=== PATIENT | female | born 1960 | race American Indian/Alaskan Native ===

== ENCOUNTER 2019-05-11 19:00 | Emergency (ER) | payer SELFPAY ==
[2019-05-11] MEDS ORDERED: ZOFRAN ODT PO ONE (22:32)
[2019-05-11] MEDS ORDERED: ZOFRAN ODT ONE (22:32)
[2019-05-11] MEDS ORDERED: PERCOCET 5/325 PO ONE (22:32)
[2019-05-11] MEDS ORDERED: PERCOCET 5/325 ONE (22:32)
== END 2019-05-11 22:45 | disposition home or self-care (01) ==
LOC: ED 19:00
DX: M25.50 Pain in unspecified joint (principal); Z53.21 Procedure and treatment not carried out due to patient leaving prior to being seen by health care provider
CPT/HCPCS: Q0162

== ENCOUNTER 2019-07-15 09:44 | Emergency (ER) | payer MEDICARE ==
[2019-07-15 09:55] VITALS: BP 115/56
[2019-07-15] MEDS ORDERED: NORCO 5/325 PO STA (11:01)
--- NOTE | 2019-07-15 12:01 | XRay Report ---
LUMBOSACRAL SPINE, 3 VIEWS INDICATION: Severe back pain for one day. No injury. COMPARISON: None. IMPRESSION: Normal alignment. Mild degenerative disc narrowing and moderate to severe hypertrophic facet arthropathy are identified at L4-5 and L5-S1. The remaining levels are within normal limits. N o acute osseous or soft tissue abnormality. Signer Name: Chas Mayo Jr, MD Signed: 07/15/2019 11:56 AM Workstation Name: [id number]
--- NOTE | 2019-07-15 13:05 | Emergency Department Report ---
ED Back Pain/Injury HPI - General Chief Complaint: Back Pain/Injury Stated Complaint: LOWER BACK PAIN Time Seen by Provider: 07/15/19 11:01 Source: patient Limitations: No Limitations - History of Present Illness MD Complaint: back pain, back injury -: Gradual Similar Symptoms Previously: Yes Place: home Radiation: none Severity: moderate Quality: sharp, aching Consistency: intermittent Improves With: none Worsens With: movement Context: unknown Associated Symptoms: denies: chest pain, numbness, cough, incontinence, constipation, loss of appetite, rash, seizure, shortness of breath - Related Data Previous Rx's Medication Instructions Recorded Last Taken Type methOCARBAMOL [Robaxin] 750 mg PO Q8H PRN #21 tablet 07/15/19 Unknown Rx predniSONE [Deltasone] 50 mg PO QDAY #5 tab 07/15/19 Unknown Rx traMADol [Ultram] 50 mg PO Q6HR PRN #14 tablet 07/15/19 Unknown Rx Allergies Allergy/AdvReac Type Severity Reaction Status Date / Time No Known Allergies Allergy Verified 05/11/19 19:08 ED Review of Systems ROS: Stated complaint: LOWER BACK PAIN Other details as noted in HPI Comment: All other systems reviewed and negative ED Past Medical Hx - Past Medical History Previous Medical History?: Yes Additional medical history: collapsed lung - Surgical History Past Surgical History?: Yes Additional Surgical History: lung surgery - Social History Smoking Status: Never Smoker Substance Use Type: Alcohol, Marijuana - Medications Home Medications: Home Medications Medication Instructions Recorded Confirmed Last Taken Type methOCARBAMOL [Robaxin] 750 mg PO Q8H PRN #21 tablet 07/15/19 Unknown Rx predniSONE [Deltasone] 50 mg PO QDAY #5 tab 07/15/19 Unknown Rx traMADol [Ultram] 50 mg PO Q6HR PRN #14 tablet 07/15/19 Unknown Rx ED Physical Exam - General Limitations: No Limitations General appearance: alert, in no apparent distress - Head Head exam: Present: atraumatic, normocephalic - Eye Eye exam: Present: normal appearance, PERRL, EOMI Pupils: Present: normal accommodation - ENT ENT exam: Present: normal exam, mucous membranes moist, TM's normal bilaterally - Neck Neck exam: Present: normal inspection - Respiratory Respiratory exam: Present: normal lung sounds bilaterally. Absent: respiratory distress - Cardiovascular Cardiovascular Exam: Present: regular rate, normal rhythm. Absent: systolic murmur, diastolic murmur, rubs, gallop - GI/Abdominal GI/Abdominal exam: Present: soft, normal bowel sounds - Extremities Exam Extremities exam: Present: normal inspection - Back Exam Back exam: Present: normal inspection, tenderness (there is no tenderness to the left sacroiliac joint with palpation. Some paraspinous tenderness with palpation and some muscle spasm noted. Full range of motion. Straight leg raising is negative. Spurling's test is negative. There is discomfort with lateral flexion) - Neurological Exam Neurological exam: Present: alert, oriented X3, CN II-XII intact - Psychiatric Psychiatric exam: Present: normal affect, normal mood - Skin Skin exam: Present: warm, dry, intact, normal color. Absent: rash ED Course Vital Signs 07/15/19 07/15/19 09:53 11:17 Temperature 98.4 F Pulse Rate 69 Respiratory 18 18 Rate Blood Pressure 115/56 O2 Sat by Pulse 97 Oximetry ED Medical Decision Making - Radiology Data Radiology results: report reviewed (arthritis and facet joint arthropathy on lumbar films) - Medical Decision Making 59-year-old [place] female complains of back pain off and on for the last couple days and reemerge on today. Pain is associated with cramping, aching across her lumbar area. X-ray showed facet joint arthropathy and some spinal canal stenosis and disposition narrowing. There is full range of motion on examination. No urgent/emergent neurological condition is present. Discussed with patient the need to follow with or so for further evaluation and likely an MRI. And she's been also advised on the appropriate treatment involving med ication. She is neurologically intact with no signs of any cord syndrome, cord compression syndrome. Critical care attestation.: If time is entered above; I have spent that time in minutes in the direct care of this critically ill patient, excluding procedure time. ED Disposition Clinical Impression: Back pain Disposition: DC-01 TO HOME OR SELFCARE Is pt being admited?: No Does the pt Need Aspirin: No Condition: Stable Instructions: Lumbar Radiculopathy (ED), Chronic Back Pain (ED), Back Pain (ED) Prescriptions: predniSONE [Deltasone] 50 mg PO QDAY #5 tab methOCARBAMOL [Robaxin] 750 mg PO Q8H PRN #21 tablet PRN Reason: Spasms traMADol [Ultram] 50 mg PO Q6HR PRN #14 tablet PRN Reason: Pain Referrals: [facility] MD EUFEMIA [Primary Care Provider] - 3-5 Days GIDEON ROMERO MD [Staff Physician] - 3-5 Days
== END 2019-07-15 13:11 | disposition home or self-care (01) ==
LOC: ED 09:44
DX: M54.9 Dorsalgia, unspecified (principal); F12.10 Cannabis abuse, uncomplicated; Z79.899 Other long term (current) drug therapy
CPT/HCPCS: 72100; 99283

== ENCOUNTER 2020-01-22 22:20 | Emergency (ER) | payer MEDICARE ==
[2020-01-22] MEDS ORDERED: IBUPROFEN 600 MG TAB PO ONE ×2 (23:50→23:52)
--- NOTE | 2020-01-23 00:37 | XRay Report ---
CERVICAL SPINE 3 VIEWS INDICATION: neck pain. COMPARISON: No relevant prior imaging study available. FINDINGS: There is limited evaluation of the odontoid on open-mouth view. The cervicothoracic junction is not w ell-visualized on the lateral view. Accounting for these limitations, no acute, displaced fracture or subluxation is seen. There is no prevertebral soft tissue swelling. There is mild to moderate diffuse mid to lower cervical discogenic degenerative change. IMPRESSION: 1. No acute findings. LUMBAR SPINE 3 VIEWS INDICATION: Low back pain. COMPARISON: 07/15/2019. FINDINGS: No acute fracture or subluxation is seen. Alignment is normal. Advanced diffuse facet arthropathy is noted. There is diffuse narrowing of the distance between the s pinous processes as well. There is mild diffuse discogenic degenerative change. IMPRESSION: 1. No acute findings. Signer Name: Jesu Kingston MD Signed: 01/23/2020 12:33 AM Workstation Name: [id number]
--- NOTE | 2020-01-23 02:35 | Emergency Department Report ---
ED Fall HPI - General Chief Complaint: Back Pain/Injury Stated Complaint: FALL AT WORK/BACK/NECK PAIN Time Seen by Provider: 01/23/20 01:54 Source: patient Mode of arrival: Ambulatory Limitations: No Limitations - History of Present Illness Initial Comments: This is a 59-year-old -[place] female who presents to the emergency room with neck and low back pain from a slip and fall. Patient states she was taking trash out at her apartments on yesterday when she slipped and fell on some water near the trash [place]. Patient states she landed face forward with her hands stretched out. She is now complaining of posterior neck and low back pain which is worse with movement. She denies bruising, swelling, numbness or tingling, weakness, change in urinary or bowel pattern. MD Complaint: fall Onset/Timin -: days(s) Fall From: standing Fall Witnessed: no Place Fall Occurred: street Loss of Consciousness: none Prolonged Down Time?: no Symptoms Prior to Fall: none Location: neck, back Severity: moderate Severity scale (0 -10): 7 Quality: aching Context: tripped/slipped Associated Symptoms: neck pain - Related Data Previous Rx's Medication Instructions Recorded Last Taken Type methOCARBAMOL [Robaxin] 750 mg PO Q8H PRN #21 tablet 07/15/19 Unknown Rx predniSONE [Deltasone] 50 mg PO QDAY #5 tab 07/15/19 Unknown Rx traMADoL [Ultram] 50 mg PO Q6HR PRN #14 tablet 07/15/19 Unknown Rx Methocarbamol [Robaxin] 500 mg PO BID PRN #15 tablet 01/23/20 Unknown Rx Allergies Allergy/AdvReac Type Severity Reaction Status Date / Time No Known Allergies Allergy Verified 05/11/19 19:08 ED Review of Systems ROS: Stated complaint: FALL AT WORK/BACK/NECK PAIN Other details as noted in HPI Constitutional: denies: chills, fever Respiratory: denies: cough, shortness of breath, wheezing Cardiovascular: denies: chest pain, palpitations Gastrointestinal: denies: abdominal pain, nausea, diarrhea Musculoskeletal: back pain, arthralgia (Neck pain). denies: joint swelling Skin: denies: rash, lesions Neurological: denies: headache, weakness, paresthesias Psychiatric: denies: anxiety, depression ED Past Medical Hx - Past Medical History Previous Medical History?: Yes Hx Asthma: Yes Additional medical history: collapsed lung - Surgical History Past Surgical History?: Yes Additional Surgical History: lung surgery - Social History Smoking Status: Never Smoker Substance Use Type: None - Medications Home Medications: Home Medications Medication Instructions Recorded Confirmed Last Taken Type methOCARBAMOL [Robaxin] 750 mg PO Q8H PRN #21 tablet 07/15/19 Unknown Rx predniSONE [Deltasone] 50 mg PO QDAY #5 tab 07/15/19 Unknown Rx traMADoL [Ultram] 50 mg PO Q6HR PRN #14 tablet 07/15/19 Unknown Rx Methocarbamol [Robaxin] 500 mg PO BID PRN #15 tablet 01/23/20 Unknown Rx ED Physical Exam - General Limitations: No Limitations General appearance: alert, in no apparent distress, obese - ENT ENT exam: Present: mucous membranes moist - Neck Neck exam: Present: tenderness (C4 and C5 tenderness to palpation, no swelling, no erythema, no step-off), full ROM (Pain with full range of motion). Absent: lymphadenopathy, thyromegaly - Respiratory Respiratory exam: Present: normal lung sounds bilaterally. Absent: respiratory distress - Cardiovascular Cardiovascular Exam: Present: regular rate, normal rhythm. Absent: systolic murmur, diastolic murmur, rubs, gallop - GI/Abdominal GI/Abdominal exam: Present: soft, normal bowel sounds. Absent: distended, tenderness, guarding, rebound, rigid, organomegaly - Extremities Exam Extremities exam: Present: normal inspection - Back Exam Back exam: Present: full ROM, paraspinal tenderness (Bilateral L-spine paraspinal tenderness, no midline tenderness, no deformity or step-off), other (Negative straight leg test). Absent: muscle spasm, vertebral tenderness, rash noted - Neurological Exam Neurological exam: Present: alert, oriented X3, normal gait - Expanded Neurological Exam Expanded Speech: Present: fluid speech Cerebellar function: Finger to Nose: Normal, Romberg: Normal Sensory exam: Lower Extremity Light Touch: Normal, Lower Extremity Pin Prick: Normal, Lower Extremity Temperature: Normal, LE 2 Point Discrimination: Normal Motor strength exam: RLE: 5, LLE: 5 Best Eye Response (Anthony): (4) open spontaneously Best Motor Response (Anthony): (6) obeys commands Best Verbal Response (Efra): (5) oriented Anthony Total: 15 - Psychiatric Psychiatric exam: Present: normal affect, normal mood - Skin Skin exam: Present: warm, dry, intact, normal color. Absent: rash ED Course Vital Signs 01/22/20 22:24 Temperature 98.2 F Pulse Rate 88 Respiratory 18 Rate Blood Pressure 97/62 O2 Sat by Pulse 97 Oximetry ED Medical Decision Making - Radiology Data Radiology results: report reviewed CERVICAL SPINE 3 VIEWS INDICATION: neck pain. COMPARISON: No relevant prior imaging study available. FINDINGS: There is limited evaluation of the odontoid on open-mouth view. The cervicothoracic junction is not well-visualized on the lateral view. Accounting for these limitations, no acute, displaced fracture or subluxation is seen. There is no prevertebral soft tissue swelling. There is mild to moderate diffuse mid to lower cervical discogenic degenerative change. IMPRESSION: 1. No acute findings. LUMBAR SPINE 3 VIEWS INDICATION: Low back pain. COMPARISON: 07/15/2019. FINDINGS: No acute fracture or subluxation is seen. Alignment is normal. Advanced diffuse facet arthropathy is noted. There is diffuse narrowing of the distance between the spinous processes as well. There is mild diffuse discogenic degenerative change. IMPRESSION: 1. No acute findings. - Medical Decision Making 59-year-old female complaining of posterior neck and low back pain from a slip and fall yesterday. Patient is nontoxic appearing and stable. Vitals are stable. Obtained x-rays of cervical and lumbar spine with no acute findings. Analgesics given while in ER. Given history, exam, and work-up, there is low suspicion for spine fracture or other acute spinal syndrome. Patient given instructions for rice therapy. Continue taking [id number] NSAIDs. Start muscle relaxers. She was given strict return precautions for delayed possible symptoms. Patient discharged with prompt follow-up with primary care physician. Critical care attestation.: If time is entered above; I have spent that time in minutes in the direct care of this critically ill patient, excluding procedure time. ED Disposition Clinical Impression: Neck pain, Muscle strain Back pain Qualifiers: Back pain location: low back pain Chronicity: acute Back pain laterality: bilateral Sciatica presence: without sciatica Qualified Code(s): M54.5 - Low back pain Fall Qualifiers: Encounter type: initial encounter Qualified Code(s): W19.XXXA - Unspecified fall, initial encounter Disposition: TO HOME OR SELFCARE Is pt being admited?: No Condition: Stable Instructions: Muscle Strain (ED), Arthralgia (ED), Fall Prevention (ED) Additional Instructions: Rest Use ice or heat on affected area for 20 minutes and off for 2 hours. Take [id number] ibuprofen, naproxen, or Aleve pain medication every 6-8 hours as needed for pain. Don't drive or operate heavy machinery while taking muscle relaxers because they may cause drowsiness. Follow up with Primary Care Provider in 2-3 days. Prescriptions: Methocarbamol [Robaxin] 500 mg PO BID PRN #15 tablet PRN Reason: Muscle Spasm Referrals: [facility], [facility] [Provider Group] - 3-5 Days XIN LEVY MD [Staff Physician] - 3-5 Days PATY JACOBS MD [Staff Physician] - 3-5 Days Time of Disposition: 02:37
[2020-01-23] MEDS ORDERED: traMADol 50 MG TAB PO ONE (02:36)
[2020-01-23 02:52] VITALS: BP 119/60
== END 2020-01-23 02:50 | disposition home or self-care (01) ==
LOC: ED 22:20
DX: S16.1XXA Strain of muscle, fascia and tendon at neck level, initial encounter (principal); M54.5 Low back pain; J45.909 Unspecified asthma, uncomplicated; Z98.890 Other specified postprocedural states; Z79.899 Other long term (current) drug therapy; W01.0XXA Fall on same level from slipping, tripping and stumbling without subsequent striking against object, initial encounter; Y93.89 Activity, other specified; Y92.410 Unspecified street and highway as the place of occurrence of the external cause; Y99.8 Other external cause status
CPT/HCPCS: 72040; 72100